=== PATIENT | female | born 1990 | race Caucasian/White ===

== ENCOUNTER → 2016-04-20 | Outpatient (CLI) | payer OTHER | LOC: ZCOL.LAB 12:51 | DX: Z32.01 Encounter for pregnancy test, result positive (principal) ==

== ENCOUNTER → 2016-08-05 | Outpatient (REF) | LOC: WSOH 11:30 | DX: Z01.89 Encounter for other specified special examinations (principal) ==

== ENCOUNTER → 2016-12-09 | Outpatient (CLI) | payer OTHER | LOC: COL.RAD 09:54 | DX: R10.11 Right upper quadrant pain (principal); R94.5 Abnormal results of liver function studies ==